=== PATIENT | female | born 1965 | race Caucasian/White ===

== ENCOUNTER → 2017-01-24 | Outpatient (CLI) | payer SELFPAY ==
--- NOTE | 2017-01-24 11:54 | XR ---
EXAMINATION TYPE: XR Hip Complete LT DATE OF EXAM: 01/24/2017 CLINICAL HISTORY: pain TECHNIQUE: AP and frogleg views of the left hip are obtained. COMPARISON: None. FINDINGS: There is no acute fracture/dislocation evident. The joint space appears mildly narrowed. The overlying soft tissue appears unremarkable. IMPRESSION: 1. There is no acute fracture or dislocation. ICD 10 NO FRACTURE, INITIAL EVALUATION
== END | disposition home or self-care (01) ==
LOC: RADXRMAIN 11:21
PROVIDERS: ATTEND Family Medicine
DX: M79.605 Pain in left leg (principal); M25.552 Pain in left hip
CPT/HCPCS: 73502

== ENCOUNTER → 2020-05-04 | Outpatient (CLI) | payer OTHER ==
[2020-05-04 11:00] LABS: Basophils % (A) 0 %; Eosinophils # (A) 0.3 k/uL (0-0.7); Eosinophils % (A) 5 %; HCT 40.5 % (34.0-46.0); HGB 12.9 gm/dL (11.4-16.0); Lymphocytes % (A) 29 %; MCH 27.2 pg (25.0-35.0); MCHC 31.8 g/dL (31.0-37.0); MCV 85.6 fL (80.0-100.0); Mean Platelet Volume 6.5; Monocytes # (A) 0.3 k/uL (0-1.0); Monocytes % (A) 5 %; Neutrophils % (A) 59 %; Platelet Count 384 k/uL (150-450); RBC 4.74 m/uL (3.80-5.40); RDW 12.4 % (11.5-15.5); WBC 6.8 k/uL (3.8-10.6)
[2020-05-04 17:01] LABS: African American GFR (CKD) 94.9 (60.0-200.0); Non-African American GFR(CKD) 81.8 (60.0-200.0); Potassium 4.2 mmol/L (3.5-5.5)
== END | disposition home or self-care (01) ==
LOC: LABWHC1 09:14
PROVIDERS: ATTEND Obstetrics & Gynecology
DX: Z01.818 Encounter for other preprocedural examination (principal); N81.4 Uterovaginal prolapse, unspecified
CPT/HCPCS: 36415; 80051; 82565; 82947; 84520; 85025; 87086; 93005

== ENCOUNTER → 2020-05-12 | Outpatient (CLI) | payer OTHER | END | disposition home or self-care (01) | LOC: LABPAT 13:42 | PROVIDERS: ATTEND Obstetrics & Gynecology | DX: Z01.818 Encounter for other preprocedural examination (principal); N81.4 Uterovaginal prolapse, unspecified; N81.11 Cystocele, midline | CPT/HCPCS: 36415; 86850; 86900; 86901 ==

== ENCOUNTER 2020-05-18 05:53 | Day surgery (SDC) | payer OTHER ==
[2020-05-14 14:14] VITALS: BMI 25.9
[~2020-05-18 05:53] MED LIST: DEXAMETHASONE SOD PHOSPHATE 10 MG/ML 1 ML VIAL IV ONE; LACTATED RINGERS 1,000 ML IV SCH; LIDOCAINE 1% (10MG/ML) FOR IV START INTRADERMA PRN; MIDAZOLAM 2 MG/2 ML VIAL IV PRN; ONDANSETRON 4 MG/2 ML VIAL IVP ONE
[2020-05-18] MEDS ORDERED: ePHEDrine SULFATE/0.9% NACL/PF 50 MG/5 ML SYRINGE IV ONE (07:21)
[2020-05-18] MEDS ORDERED: MIDAZOLAM 2 MG/2 ML VIAL ONE (07:21)
[2020-05-18] MEDS ORDERED: LIDOCAINE 1% INJ 10MG/ML (20 ML MDV) ONE (07:21)
[2020-05-18] MEDS ORDERED: PROPOFOL 10 MG/ML 20 ML VIAL IV ONE (07:21)
[2020-05-18] MEDS ORDERED: fentaNYL (PF) 50 MCG/ML 2 ML AMP ONE (07:21)
[2020-05-18] MEDS ORDERED: VASOPRESSIN 20 UNIT/ML 1 ML VIAL SQ ONE ×2 (07:47)
[2020-05-18] MEDS ORDERED: BACITRACIN ZINC 500 UNIT/GM OINT 28.4 GM TUBE TOPICAL ONE ×2 (07:51→08:35)
--- NOTE | 2020-05-18 08:09 | P.ANPRN ---
Procedure Note - Anesthesia - Epidural/Spinal Spinal Time Out Performed: Yes Date of Procedure: 05/18/20 Procedure Start Time: 06:54 Procedure Stop Time: 07:03 Location of Patient: PreOp Indication: Acute Post-Operative Pain, Analgesia, Requested by Surgeon Sedation Type: Sedate with meaningful contact maintained Preparation: Sterile Dressing Number of Attempts: 1 Position: Sitting Catheter: None Needle Guage: 25, Other (see comment) (3.5 inch long ) Blood Aspirated: No Pain Paresthesia on Injection Noted: No Events: Uneventful and Well Tolerated (Morphine PF 300 micrograms and fentanyl 25 micrograms)
[2020-05-18] MEDS ORDERED: METOCLOPRAMIDE 5 MG/ML 2 ML VIAL IVP PRN (08:57)
[2020-05-18] MEDS ORDERED: diphenhydrAMINE 50 MG/ML 1 ML VIAL IVP PRN (08:57)
[2020-05-18] MEDS ORDERED: ONDANSETRON 4 MG/2 ML VIAL IVP PRN (08:57)
[2020-05-18] MEDS ORDERED: ZOLPIDEM 5 MG TAB PO PRN (08:57)
--- NOTE | 2020-05-18 08:57 | P.OP ---
Date of Procedure: 05/18/20 Preoperative Diagnosis: Symptomatic uterine prolapse and cystocele Postoperative Diagnosis: Normal-appearing ovaries bilaterally Procedure(s) Performed: Vaginal hysterectomy, anterior repair Anesthesia: ARCADIOA Surgeon: Dara Head Drag Seiner #1: Aidee Villafana Estimated Blood Loss (ml): 150 IV fluids (ml): 600 Urine output (ml): 150 Pathology: other (Cervix and uterus) Condition: stable Disposition: PACU Operative Findings: Normal-appearing ovaries bilaterally. Description of Procedure: Patient is brought to the operating suite where a general anesthetic is administered without difficulty. Spinal with Duramorph has been placed. Antibiotics given. The appropriate timeout is performed to assure proper patient and procedural identification. Patient is placed in the dorsal lithotomy position, cervix and vagina, perineal bodies are all prepped and draped in usual sterile fashion. The bladder is drained for approximately 150 mL of clear yellow urine. Weighted speculum was placed into the vagina. Anterior lip of the cervix is grasped with a double-tooth tenaculum. Cervix is injected circumferentially with a dilute Pitressin solution. A benton blade scalpel is used to incise the peritoneum circumferentially with a V positioning at 6:00. Sponge rolled finger is used to push the mucosa from the underlying fascial plane. Peritoneum is entered at 6:00 and suture tied with 2-0 Vicryl. Weighted speculum is then placed into the peritoneal cavity. At all times care is taken to keep the mucosa swept well from the operative field to avoid bladder and/or ureteral injury. The right uterosacral ligament is identified, clamped cut and Shayna tied with 0 Vicryl and held. The same procedure is carried out contralaterally. Uterine vasculature is identified, cl amped cut and suture ligated. 2 additional pedicles are taken superior to the vessels. The anterior peritoneum is entered at 12:00. Jeanmarie clamps are used across the final pedicles and the uterus is removed. The pedicles are tied with 0 Vicryl suture, flashed, and retied for excellent hemostasis. A sponge stick is then used and both ovaries are identified, high in the peritoneal cavity, within normal limits to inspection and left in situ per patient's wishes. Hemostasis is excellent. The shallow billed speculum is then placed into the vagina. The 2-0 Vicryl suture at 6:00 is brought around in a pursestring fashion to close the peritoneal cavity. The uterosacral cardinal ligament complex these are attached to the opposite complex and vaginal mucosa to begin vaginal cuff closure. 2 additional [id number] sutures are used posterior to this to close the vaginal cough. The anterior mucosa is held with Allis clamps and the anterior repair is started. The mucosa is injected in the midline with the same dilute Pitressin solution. Metzenbaum scissors are used to open the mucosa to the apex of the defect, approximate 1.5 cm inferior to the urethra. Sponge rolled finger is used to sweep the mucosa from the underlying fascial plane. Gamez catheter is then placed in the urine is noted to be clear. 2-0 Vicryl is used in an interrupted fashion to bring the fascial edges together thereby completely reducing the cystocele. The mucosa is trimmed with Metzenbaum scissors. 2-0 Vicryl is used in a running stitch to close the anterior mucosa. Gamez is again noted to be draining clear urine. Vagina is packed with one-inch iodophor gauze with basic tracing. All sponge needle and enhancement counts are correct at the end of the procedure. Patient is brought back to the recovery room in very good condition with stable vital signs including blood pressure 122/77, pulse 60.. Total estimated blood loss 1 50 mL, urine 1 50 mL, fluid replacement 600 mL's.
[2020-05-18] MEDS: HYDROmorphone 0.5 MG/0.5 ML SYRINGE IVP PRN ×2 (09:12→09:30)
[2020-05-18] MEDS ORDERED: LACTATED RINGERS 1,000 ML IV ONE (09:32)
[2020-05-18] MEDS: LACTATED RINGERS 1,000 ML IV SCH ×2 (10:10→17:22)
[2020-05-18] MEDS: IBUPROFEN 600 MG TAB PO PRN (17:27)
[2020-05-19] MEDS: LACTATED RINGERS 1,000 ML IV SCH (01:13)
[2020-05-19] MEDS: IBUPROFEN 600 MG TAB PO PRN ×2 (04:50→10:05)
[2020-05-19] MEDS ORDERED: LEVOTHYROXINE 25 MCG TAB PO SCH (06:30)
--- NOTE | 2020-05-19 06:32 | P.PN ---
Progress Note - Text Progress Note Date: 05/19/20 Thais is postop day 1 from a vaginal hysterectomy. She had a spinal Duramorph for postoperative pain relief. Her pain has been under control. She has not required any opioid medication besides ibuprofen 800 mg. She is having minimal pruritus. Denies any significant bowel or bladder incontinence. Denies any overt lower extremity or upper extremity weakness. She is awake and not having any significant sedation.
--- NOTE | 2020-05-19 07:52 | P.DS ---
Providers Date of admission: 05/18/20 Expected date of discharge: 05/19/20 Attending physician: Dara Head Primary care physician: Teo Zhu [facility] Course: This is a 55-year-old white female who presented with a history of uterine prola pse and symptomatic cystocele. Thorough consultation was undertaken, and she elected to proceed with vaginal surgery, declining the option of pessary use. Please see dictated history and physical for details. She was admitted yesterday and underwent a vaginal hysterectomy and anterior colporrhaphy under my care. Ovaries appeared normal bilaterally and were left in situ per the patient's wishes. She did well intraoperatively, please see dictated operative note for details. This morning she is doing well. The Gamez catheter and vaginal packing a been removed. Diet has been advanced. Activity is advanced. She remains afebrile, vital signs are stable. Abdomen is soft and nontender, no vaginal bleeding, no CVA tenderness. Patient is judged to be in very good condition for discharge home pending successful void. She will follow-up with me in the office in 2 weeks. I reminded her no intercourse, tampons or douching. She will use [id number] Advil or Aleve, or Motrin as needed for pain. She will call with any fevers shakes or chills, foul smelling or bloody vaginal discharge, with the passage of large blood clots, with any pain not alleviated by [id number] products, or indeed with any concerns Assessment: Doing well postoperative day #1 Patient Condition at Discharge: Good Plan - Discharge Summary Discharge Rx Participant: No New Discharge Prescriptions: No Action Levothyroxine Sodium [Synthroid] 25 mcg PO DAILY Cholecalciferol [Vitamin D3 (25 Mcg = 1000 Iu)] 1,000 unit PO DAILY Discharge Medication List Levothyroxine Sodium [Synthroid] 25 mcg PO DAILY 08/11/15 [History] Cholecalciferol [Vitamin D3 (25 Mcg = 1000 Iu)] 1,000 unit PO DAILY 05/14/20 [History] Follow up Appointment(s)/Referral(s): Dara Head MD [STAFF PHYSICIAN] - 2 Weeks Discharge Disposition: HOME SELF-CARE
[2020-05-19] MEDS: SIMETHICONE 80 MG CHEWABLE PO PRN ×2 (07:58→10:40)
[2020-05-19 08:49] VITALS: BP 101/66; PULSE 56; RESP 16; TEMP 98.4
== END 2020-05-19 11:30 | disposition home or self-care (01) ==
LOC: OR 05:53 → 6PED 08:43 → OR 05-19 11:30
PROVIDERS: ATTEND Obstetrics & Gynecology
DX: N81.4 Uterovaginal prolapse, unspecified (principal); N84.0 Polyp of corpus uteri; N80.0 Endometriosis of uterus; I83.90 Asymptomatic varicose veins of unspecified lower extremity; E89.0 Postprocedural hypothyroidism; Z97.2 Presence of dental prosthetic device (complete) (partial); Z82.49 Family history of ischemic heart disease and other diseases of the circulatory system; Z80.9 Family history of malignant neoplasm, unspecified; Z79.890 Hormone replacement therapy
CPT/HCPCS: 88307; 58260; 57240; J2250; J1100; J0690; J2405; J2001; J3010; J2704; J1170; 36415; 86850; 86900; 86901

== ENCOUNTER → 2020-05-25 | Outpatient (CLI) | payer SELFPAY ==
--- NOTE | 2020-05-26 09:13 | MM ---
Reason for exam: screening (asymptomatic). Last mammogram was performed 7 years and 5 months ago. History: Patient is postmenopausal. Cancelled Right US Needle Biopsy of the right breast, April 30, 2007. Cyst aspiration of the right breast, 2003. Physical Findings: A clinical breast exam by your physician is recommended on an annual basis and results should be correlated with mammographic findings. MG Screening Mammo w CAD Bilateral CC, MLO, and XCCL view(s) were taken. Prior study comparison: December 27, 2012, CAD bilateral diagnostic mammogram. January 05, 2012, CAD bilateral diagnostic mammogram. The breast tissue is heterogeneously dense. This may lower the sensitivity of mammography. Distortion lower inner left breast. ASSESSMENT: Incomplete: need additional imaging evaluation, BI-RAD 0 RECOMMENDATION: Special view mammogram of the left breast. If lesion persists on supplemental views, image directed ultrasound is recommended. [facility] will attempt to contact patient to return for supplemental views and ultrasound if indicated.
== END | disposition home or self-care (01) ==
LOC: RADMAMWWP 11:20
PROVIDERS: ATTEND Family Medicine
DX: Z12.31 Encounter for screening mammogram for malignant neoplasm of breast (principal)
CPT/HCPCS: 77067

== ENCOUNTER → 2020-06-10 | Outpatient (CLI) | payer OTHER ==
--- NOTE | 2020-06-15 10:30 | MM ---
Reason for exam: additional evaluation requested from abnormal screening. Last mammogram was performed 1 month ago. History: Patient is postmenopausal. Cancelled Right US Needle Biopsy of the right breast, April 30, 2007. Cyst aspiration of the right breast, 2003. Physical Findings: Nurse did not find any significant physical abnormalities on exam. MG Work Up Mamm w CAD LT Spot compression CC, spot compression MLO, and LM view(s) were taken of the left breast. Prior study comparison: May 25, 2020, bilateral MG screening mammo w CAD. December 27, 2012, CAD bilateral diagnostic mammogram. The breast tissue is heterogeneously dense. This may lower the sensitivity of mammography. No distinct lesion persists on additional views. These results were verbally communicated with the patient and result sheet given to the patient on 06/10/20. ASSESSMENT: Benign, BI-RAD 2 RECOMMENDATION: Return to routine screening mammogram schedule for both breasts.
== END | disposition home or self-care (01) ==
LOC: RADMAMWWP 13:11
PROVIDERS: ATTEND Family Medicine
DX: R92.8 Other abnormal and inconclusive findings on diagnostic imaging of breast (principal)
CPT/HCPCS: 77065

== ENCOUNTER 2020-09-26 11:38 | Emergency (ER) | payer OTHER ==
[2020-09-26 11:44] VITALS: RESP 18
--- NOTE | 2020-09-26 11:54 | ED ---
Fall HPI - General Chief Complaint: Fall Stated Complaint: Fall Time Seen by Provider: 09/26/20 11:47 Source: patient, RN notes reviewed Mode of arrival: ambulatory Limitations: no limitations - History of Present Illness Initial Comments: 55-year-old female presents emergency Department with chief complaint of slip and fall. Patient states she slipped on some ice falling striking the right side of her chest. Patient went to rib pain no head injury no loss conscious denies any neck, back, hip or lower extremity or upper chest pain. Patient states it hurts to take a deep breath. She states she takes ibuprofen 20 minutes ago. Patient has no complaints of abdominal pain - Related Data Home Medications Medication Instructions Recorded Confirmed Levothyroxine Sodium [Synthroid] 25 mcg PO DAILY 08/11/15 09/26/20 Cholecalciferol [Vitamin D3 (25 1,000 unit PO DAILY 05/14/20 09/26/20 Mcg = 1000 Iu)] Ibuprofen [Motrin] 600 mg PO Q12HR PRN 09/26/20 09/26/20 Allergies Allergy/AdvReac Type Severity Reaction Status Date / Time unknown antibiotic Allergy Unknown Rash/Hives Uncoded 09/26/20 11:44 Review of Systems ROS Statement: Those systems with pertinent positive or pertinent negative responses have been documented in the HPI. ROS Other: All systems not noted in ROS Statement are negative. Past Medical History Past Medical History: Thyroid Disorder History of Any Multi-Drug Resistant Organisms: None Reported Additional Past Surgical History / Comment(s): Partial thyroidectomy on the left side. Past Psychological History: No Psychological Hx Reported Past Alcohol Use History: Occasional Past Drug Use History: Marijuana General Exam Limitations: no limitations General appearance: alert, in no apparent distress Head exam: Present: atraumatic, normocephalic, normal inspection Eye exam: Present: normal appearance, PERRL, EOMI. Absent: scleral icterus, conjunctival injection, periorbital swelling ENT exam: Present: normal exam, normal oropharynx, mucous membranes moist Neck exam: Present: normal inspection, full ROM. Absent: tenderness, meningismus, lymphadenopathy Respiratory exam: Present: normal lung sounds bilaterally, chest wall tenderness (Moderate right-sided rib tenderness). Absent: respiratory distress, wheezes, rales, rhonchi, stridor Cardiovascular Exam: Present: regular rate, normal rhythm, normal heart sounds. Absent: systolic murmur, diastolic murmur, rubs, gallop, clicks GI/Abdominal exam: Present: soft, normal bowel sounds. Absent: distended, tenderness, guarding, rebound, rigid Extremities exam: Present: normal inspection, full ROM, normal capillary refill. Absent: tenderness, pedal edema, joint swelling, calf tenderness Back exam: Present: full ROM. Absent: tenderness, paraspinal tenderness, vertebral tenderness Neurological exam: Present: alert, oriented X3, CN II-XII intact, reflexes normal. Absent: motor sensory deficit Course Vital Signs 09/26/20 11:39 Temperature 98.4 F Pulse Rate 68 Respiratory 18 Rate Blood Pressure 171/101 O2 Sat by Pulse 97 Oximetry - Reevaluation(s) Reevaluation #1: 09/26/20 11:54 Patient was offered pain medication, patient declines. Medical Decision Making - Medical Decision Making 55-year-old presented for slip and fall. X-ray shows evidence of rib fracture. Patient has no evidence of pneumothorax. Patient we discharged in stable condition. Disposition Clinical Impression: Fall, Right rib fracture Disposition: HOME SELF-CARE Condition: Stable Instructions (If sedation given, give patient instructions): Rib Fracture (ED) Additional Instructions: Please return to the Emergency Department if symptoms worsen or any other concerns. Is patient prescribed a controlled substance at d/c from ED?: No Referrals: Teo Zhu MD [Primary Care Provider] - 1-2 days Time of Disposition: 12:27
--- NOTE | 2020-09-26 12:23 | XR ---
EXAMINATION TYPE: XR ribs RT w pa chest xray DATE OF EXAM: 09/26/2020 COMPARISON: NONE HISTORY: Pain TECHNIQUE: Single view of the chest four views of the ribs are submitted. FINDINGS: The lungs are clear. No Evidence for pneumothorax. No evidence for focal contusion. Medi astinal structures are midline. Evaluation of the ribs fails to demonstrate evidence for displaced r ib fracture or secondary sign of rib fracture. IMPRESSION: Negative study
[2020-09-26] MEDS ORDERED: ACET/COD 300 MG/30 MG STARTER PACK 6 TAB BTL PO STA (12:30)
[2020-09-26 12:44] VITALS: BP 122/88; PULSE 64; TEMP 98.7
== END 2020-09-26 12:43 | disposition home or self-care (01) ==
LOC: EC 11:38
DX: S22.31XA Fracture of one rib, right side, initial encounter for closed fracture (principal); E07.9 Disorder of thyroid, unspecified; Z79.890 Hormone replacement therapy; W00.0XXA Fall on same level due to ice and snow, initial encounter; Y93.01 Activity, walking, marching and hiking
CPT/HCPCS: 99283

== ENCOUNTER 2020-10-15 09:44 | Emergency (ER) | payer OTHER ==
[2020-10-15] MEDS ORDERED: SODIUM CHLORIDE 0.9% 500 ML 500 ML IV STA (10:14)
[2020-10-15] MEDS ORDERED: MAG HYDROX/AL HYDROX/SIMETH 30 ML, HYOSCYAMINE ELIXIR 10 ML, LIDOCAINE VISCOUS 2% 10 ML PO STA ×3 (10:15)
[2020-10-15] MEDS ORDERED: FAMOTIDINE 20 MG/2 ML VIAL IV STA (10:15)
--- NOTE | 2020-10-15 10:24 | ED ---
General Adult HPI - General Chief complaint: Abdominal Pain Stated complaint: Fall, Abd pain Time Seen by Provider: 10/15/20 09:52 Source: patient, RN notes reviewed Mode of arrival: ambulatory Limitations: no limitations - History of Present Illness Initial comments: 55-year-old female presents to the emergency room for a chief complaint of abdominal pain. Patient did fall 2 weeks ago and broke two right ribs. About a week later pain started in her epigastric region and started to cause bloating and discomfort throughout her entire abdomen. It does not radiate to the chest back or right upper quadrant. There is no nausea vomiting diarrhea. No postprandial pain. Patient last had a normal bowel movement yesterday. Patient is passing gas. Patient has no other complaints at this time including shortness of breath, chest pain nausea vomiting, headache, or visual changes. - Related Data Home Medications Medication Instructions Recorded Confirmed Levothyroxine Sodium [Synthroid] 25 mcg PO DAILY 08/11/15 10/15/20 Ibuprofen [Motrin] 600 mg PO Q12HR PRN 09/26/20 10/15/20 Acetaminophen Tab [Tylenol Tab] 500 mg PO Q6HR PRN 10/15/20 10/15/20 Allergies Allergy/AdvReac Type Severity Reaction Status Date / Time Iodinated Contrast Media AdvReac Intermediate Swelling Verified 10/15/20 12:04 unknown antibiotic AdvReac Unknown Rash/Hives Uncoded 10/15/20 12:04 Review of Systems ROS Statement: Those systems with pertinent positive or pertinent negative responses have been documented in the HPI. ROS Other: All systems not noted in ROS Statement are negative. Past Medical History Past Medical History: Thyroid Disorder History of Any Multi-Drug Resistant Organisms: None Reported Past Surgical History: Bladder Surgery, Hysterectomy Additional Past Surgical History / Comment(s): Partial thyroidectomy on the left side. Past Psychological History: No Psychological Hx Reported Smoking Status: Never smoker Past Alcohol Use History: Occasional Past Drug Use History: Marijuana General Exam Limitations: no limitations General appearance: alert, in no apparent distress Head exam: Present: atraumatic, normocephalic, normal inspection Eye exam: Present: normal appearance, PERRL, EOMI. Absent: scleral icterus, conjunctival injection ENT exam: Present: normal exam, mucous membranes moist Neck exam: Present: normal inspection, full ROM. Absent: tenderness Respiratory exam: Present: normal lung sounds bilaterally. Absent: respiratory distress, wheezes Cardiovascular Exam: Present: regular rate, normal rhythm, normal heart sounds GI/Abdominal exam: Present: soft, tenderness (Epigastric tenderness noted. No right upper quadrant or left upper quadrant tenderness. No lower abdominal tenderness.), normal bowel sounds. Absent: distended, guarding, rebound, rigid Expanded GI/Abdominal exam: Absent: heel tap sign, Ji's sign, Rovsing's sign, tenderness at McBurney's Point Course Vital Signs 10/15/20 10/15/20 10/15/20 09:47 10:22 11:16 Temperature 97.9 F Pulse Rate 84 78 86 Respiratory 20 18 18 Rate Blood Pressure 130/87 136/81 158/101 O2 Sat by Pulse 99 97 100 Oximetry 10/15/20 10/15/20 11:30 12:00 Temperature Pulse Rate 76 74 Respiratory 20 18 Rate Blood Pressure 145/95 146/94 O2 Sat by Pulse 100 99 Oximetry - Reevaluation(s) Reevaluation #1: 10/15/20 11:30 Patient did have ALLERGIC reaction in CAT scan from contrast. Dix like her throat was swelling. Patient had RAD received Pepcid, given Benadryl and Solu- Medrol. Did have improvement in symptoms. EKG Findings - EKG Comments: EKG Findings:: Normal sinus rhythm, ventricular rate 67, CT interval 138, QTc 412 Medical Decision Making - Medical Decision Making Vitals are stable. CBC CMP unremarkable. Amylase and lipase are normal. Troponin negative. Urinalysis negative. Chest x-ray shows no acute normality. CT abdomen and pelvis did show enteritis as well as an uncomplicated cholelithiasis. I do not suspect cholecystitis given patient does not have fever, leukocytosis, transaminitis, or fluid around the gallbladder on CAT scan. At this time I recommend follow-up with general surgery. Patient was referred to Dr. thomas as he is on-call. She is much better after pain medication given. She will return here for any worsening symptoms. I discussed this case with attending Dr. Whiting who agrees with this assessment and treatment plan. - Lab Data Result diagrams: 10/15/20 10:27 10/15/20 10:27 Lab Results 10/15/20 10/15/20 10/15/20 Range/Units 10:27 10: 10:27 WBC 6.0 (3.8-10.6) k/uL RBC 4.50 (3.80-5.40) m/uL Hgb 12.3 (11.4-16.0) gm/dL Hct 36.8 (34.0-46.0) % MCV 81.8 (80.0-100.0) fL MCH 27.3 (25.0-35.0) pg MCHC 33.4 (31.0-37.0) g/dL RDW 12.8 (11.5-15.5) % Plt Count 407 (150-450) k/uL MPV 6.5 Neutrophils % 55 % Lymphocytes % 27 % Monocytes % 5 % Eosinophils % 11 % Basophils % 1 % Neutrophils # 3.3 (1.3-7.7) k/uL Lymphocytes # 1.6 (1.0-4.8) k/uL Monocytes # 0.3 (0-1.0) k/uL Eosinophils # 0.6 (0-0.7) k/uL Basophils # 0.0 (0-0.2) k/uL Sodium 137 (137-145) mmol/L Potassium 4.3 (3.5-5.1) mmol/L Chloride 104 (98-107) mmol/L Carbon Dioxide 26 (22-30) mmol/L Anion Gap 7 mmol/L BUN 12 (7-17) mg/dL Creatinine 0.66 (0.52-1.04) mg/dL Est GFR (CKD-EPI)AfAm >90 (>60 ml/min/1.73 sqM) Est GFR (CKD-EPI)NonAf >90 (>60 ml/min/1.73 sqM) Glucose 111 H (74-99) mg/dL Plasma Lactic Acid Chris (0.7-2.0) mmol/L Calcium 8.9 (8.4-10.2) mg/dL Total Bilirubin 0.4 (0.2-1.3) mg/dL AST 21 (14-36) U/L ALT 17 (4-34) U/L Alkaline Phosphatase 91 (38-126) U/L Troponin I (0.000-0.034) ng/mL Total Protein 6.9 (6.3-8.2) g/dL Albumin 4.0 (3.5-5.0) g/dL Amylase 36 (30-110) U/L Lipase 64 (23-300) U/L Urine Color Light Yellow Urine Appearance Clear (Clear) Urine pH 5.5 (5.0-8.0) Ur Specific Monroe 1.015 (1.001-1.035) Urine Protein Negative (Negative) Urine Glucose (UA) Negative (Negative) Urine Ketones Negative (Negative) Urine Blood Negative (Negative) Urine Nitrite Negative (Negative) Urine Bilirubin Negative (Negative) Urine Urobilinogen <2.0 (<2.0) mg/dL Ur Leukocyte Esterase Negative (Negative) 10/15/20 10/15/20 Range/Units 10:27 10:27 WBC (3.8-10.6) k/uL RBC (3.80-5.40) m/uL Hgb (11.4-16.0) gm/dL Hct (34.0-46.0) % MCV (80.0-100.0) fL MCH (25.0-35.0) pg MCHC (31.0-37.0) g/dL RDW (11.5-15.5) % Plt Count (150-450) k/uL MPV Neutrophils % % Lymphocytes % % Monocytes % % Eosinophils % % Basophils % % Neutrophils # (1.3-7.7) k/uL Lymphocytes # (1.0-4.8) k/uL Monocytes # (0-1.0) k/uL Eosinophils # (0-0.7) k/uL Basophils # (0-0.2) k/uL Sodium (137-145) mmol/L Potassium (3.5-5.1) mmol/L Chloride (98-107) mmol/L Carbon Dioxide (22-30) mmol/L Anion Gap mmol/L BUN (7-17) mg/dL Creatinine (0.52-1.04) mg/dL Est GFR (CKD-EPI)AfAm (>60 ml/min/1.73 sqM) Est GFR (CKD-EPI)NonAf (>60 ml/min/1.73 sqM) Glucose (74-99) mg/dL Plasma Lactic Acid Chris 1.3 (0.7-2.0) mmol/L Calcium (8.4-10.2) mg/dL Total Bilirubin (0.2-1.3) mg/dL AST (14-36) U/L ALT (4-34) U/L Alkaline Phosphatase (38-126) U/L Troponin I <0.012 (0.000-0.034) ng/mL Total Protein (6.3-8.2) g/dL Albumin (3.5-5.0) g/dL Amylase (30-110) U/L Lipase (23-300) U/L Urine Color Urine Appearance (Clear) Urine pH (5.0-8.0) Ur Specific Monroe (1.001-1.035) Urine Protein (Negative) Urine Glucose (UA) (Negative) Urine Ketones (Negative) Urine Blood (Negative) Urine Nitrite (Negative) Urine Bilirubin (Negative) Urine Urobilinogen (<2.0) mg/dL Ur Leukocyte Esterase (Negative) Disposition Clinical Impression: Abdominal pain, Cholelithiases Disposition: HOME SELF-CARE Condition: Good Instructions (If sedation given, give patient instructions): Gallstones (ED), Low Fat Diet (ED) Additional Instructions: Please try a low fat diet. Continue to take her Pepcid and follow up with gene ral surgery by calling today for the earliest appointment. Return to the emergency room for worsening symptoms such as worsening abdominal pain, fevers, unable to keep down fluids, or any other worsening symptoms. Is patient prescribed a controlled substance at d/c from ED?: No Referrals: Teo Zhu MD [Primary Care Provider] - 1-2 days Time of Disposition: 12:43
[2020-10-15 10:44] LABS: Appearance,Urine Clear (Clear); Basophils % (A) 1 %; Bilirubin,Urine Negative (Negative); Blood,Urine Negative (Negative); Color,Urine Light Yellow; Eosinophils # (A) 0.6 k/uL (0-0.7); Eosinophils % (A) 11 %; Glucose,Urine (UA) Negative (Negative); HCT 36.8 % (34.0-46.0); HGB 12.3 gm/dL (11.4-16.0); Ketones,Urine Negative (Negative); Leukocyte Esterase,Urine Negative (Negative); Lymphocytes # (A) 1.6 k/uL (1.0-4.8); Lymphocytes % (A) 27 %; MCH 27.3 pg (25.0-35.0); MCHC 33.4 g/dL (31.0-37.0); MCV 81.8 fL (80.0-100.0); Mean Platelet Volume 6.5; Monocytes # (A) 0.3 k/uL (0-1.0); Monocytes % (A) 5 %; Neutrophils # (A) 3.3 k/uL (1.3-7.7); Neutrophils % (A) 55 %; Nitrite,Urine Negative (Negative); PH, Urine 5.5 (5.0-8.0); Platelet Count 407 k/uL (150-450); Protein,Urine Negative (Negative); RDW 12.8 % (11.5-15.5); Specific Gravity,Urine 1.015 (1.001-1.035); Urobilinogen,Urine <2.0 mg/dL (<2.0)
[2020-10-15 10:53] LABS: Amylase 36 U/L (30-110); Chloride 104 mmol/L (98-107); Glucose 111 mg/dL (74-99); Total Protein 6.9 g/dL (6.3-8.2)
[2020-10-15 10:54] LABS: ALT 17 U/L (4-34); AST 21 U/L (14-36); African American GFR (CKD) >90 (>60 ml/min/1.73 sqM); Alkaline Phosphatase 91 U/L (38-126); Anion Gap 7 mmol/L; Blood Urea Nitrogen 12 mg/dL (7-17); Calcium 8.9 mg/dL (8.4-10.2); Carbon Dioxide 26 mmol/L (22-30); Lipase 64 U/L (23-300); Non-African American GFR(CKD) >90 (>60 ml/min/1.73 sqM); Potassium 4.3 mmol/L (3.5-5.1); Sodium 137 mmol/L (137-145); Total Bilirubin 0.4 mg/dL (0.2-1.3)
--- NOTE | 2020-10-15 10:55 | XR ---
EXAMINATION TYPE: XR chest 2V DATE OF EXAM: 10/15/2020 COMPARISON: 09/26/2020 INDICATION: Abdomen pain bloating fall 3 weeks prior TECHNIQUE: Frontal and lateral views of the chest are obtained. FINDINGS: The heart size is normal. The pulmonary vasculature is normal. The lungs are clear. IMPRESSION: 1. No acute pulmonary process.
[2020-10-15] MEDS ORDERED: diphenhydrAMINE 50 MG/ML 1 ML VIAL IVP STA (11:13)
[2020-10-15] MEDS ORDERED: methylPREDNISolone SOD SUCCI 125 MG/2 ML VIAL IV STA (11:13)
--- NOTE | 2020-10-15 11:40 | CT ---
EXAMINATION TYPE: CT abdomen pelvis w con DATE OF EXAM: 10/15/2020 COMPARISON: None HISTORY: recent fall, epigastric pain, fullness CT DLP: 597.9 mGycm CONTRAST: CT scan of the abdomen and pelvis is performed without Oral Contrast and with IV Contrast, patient in jected with 100 mL of Isovue 300. Patient experienced a contrast reaction subsequently delayed images were not obtained. FINDINGS: LUNG BASES-: No visible nodule. No infiltrate. LIVER/GB: Solitary gallstone identified. Cyst near the dome of the liver measuring 1.6 cm. Biliary tree is of normal caliber. PANCREAS: No inflammation. No distinct mass. SPLEEN: No splenic enlargement. No lesion seen. ADRENALS: No nodule. No thickening. KIDNEYS/BLADDER: No hydronephrosis. No nephrolithiasis. No distinct renal mass. Urinary bladder g rossly unremarkable. BOWEL: Normal appendix. Normal bowel caliber. Wall thickening involving jejunal small bowel loops co mpatible with enteritis. Involving several GENITAL ORGANS: Hysterectomy changes identified. LYMPH NODES: No greater than 1cm abdominal or pelvic lymph nodes are appreciated. AORTA: No significant abnormality. OSSEOUS STRUCTURES: No significant abnormality is seen. OTHER: No significant additional abnormality is seen. IMPRESSION: 1. Nonspecific small bowel enteritis. 2. Uncomplicated cholelithiasis.
[2020-10-15] MEDS ORDERED: KETOROLAC 15 MG/ML 1 ML VIAL IVP STA (11:58)
[2020-10-15 12:10] VITALS: PULSE 74; RESP 18
[2020-10-15 13:08] VITALS: BP 117/64; TEMP 98.2
== END 2020-10-15 13:00 | disposition home or self-care (01) ==
LOC: EC 09:44
DX: K80.20 Calculus of gallbladder without cholecystitis without obstruction (principal); K52.9 Noninfective gastroenteritis and colitis, unspecified; E07.9 Disorder of thyroid, unspecified; Z79.890 Hormone replacement therapy; Z88.1 Allergy status to other antibiotic agents; Z91.041 Radiographic dye allergy status; Z90.710 Acquired absence of both cervix and uterus
CPT/HCPCS: 36415; 93005; 80053; 82150; 83605; 83690; 84484; 85025; 81003; 71046; 74177; 99284; 96374; 96375 ×3; 96361; J1200; J2930; J1885; Q9967

== ENCOUNTER → 2020-12-30 | Outpatient (CLI) | payer OTHER ==
--- NOTE | 2020-12-30 10:07 | US ---
EXAMINATION TYPE: US thyroid st tissue head/neck DATE OF EXAM: 12/30/2020 COMPARISON: US CLINICAL HISTORY: E03.9 HYPOTHYROIDISM. Left thyroidectomy 2013; followup right thyroid nodules GLAND SIZE: Right Lobe: 4.5 x 1.6 x 1.6 cm Overall Parenchyma: homogenous Left Lobe: surgically removed Isthmus Thickness: 0.1 cm NODULES RIGHT: # of nodules measured on right: 2 largest of multiple 1. 0.3 X 0.3 x 0.3 cm, upper pole, spongiform, hypoechoic nodule, which is wide as is tall, with sm ooth margins, without echogenic foci. Prior size: 0.6 x 0.5 x 0.3 cm 2. 0.7 X 0.4 x 0.4 cm, mid pole, mixed cystic and solid, hypoechoic nodule, which is wide as is catalino l, with ill-defined margins, without echogenic foci. Prior size: 0.8 x 0.7 x 0.5 cm Left: no thyroid tissue is seen post thyroidectomy ISTHMUS: # of nodules measured in the isthmus: 0 Bilateral neck scanned: superior to right thyroid lymph node is seen = 1.1 x 1.0 x 0.6cm and sperior to left thyroid lymph node is seen = 1.2 x 0.7 x 0.3cm. IMPRESSION: Changes of left-sided thyroidectomy. 2. Lymph nodes as discussed above. 3. Nonspecific nodularity unchanged from prior study.
== END | disposition home or self-care (01) ==
LOC: RADUSWWP 09:01
PROVIDERS: ATTEND Internal Medicine
DX: E03.9 Hypothyroidism, unspecified (principal); E04.2 Nontoxic multinodular goiter
CPT/HCPCS: 76536

== ENCOUNTER → 2021-01-10 | Outpatient (CLI) | payer OTHER ==
--- NOTE | 2021-01-10 12:00 | FL ---
EXAMINATION TYPE: FL barium swallow w video DATE OF EXAM: 01/10/2021 MODIFIED SWALLOW / DEGLUTITION STUDY CLINICAL HISTORY: Dysphagia. Choking sensation. TECHNIQUE: Deglutition study is performed utilizing thin liquid barium, honey and nectar thick liqui d barium, barium thick applesauce, and barium coated cracker. 1.17 minutes of fluoro time and 0 imag es saved to PACS. COMPARISON: None. FINDINGS: The oral and pharyngeal phases show satisfactory initiation and propagation with all modali ties tested. Satisfactory mastication is seen with solid modalities tested. There is no evidence of penetration or aspiration with any modality tested. Mild pharyngeal residue was appreciated. IMPRESSION: No penetration or aspiration observed. Please refer to speech therapist notes for furthe r details if necessary.
== END ==
LOC: RADFLMAIN 10:53
PROVIDERS: ATTEND Internal Medicine
DX: R09.89 Other specified symptoms and signs involving the circulatory and respiratory systems (principal)
CPT/HCPCS: 74230

== ENCOUNTER 2021-06-22 09:55 | Day surgery (SDC) | payer OTHER ==
[2021-06-20 14:06] VITALS: BMI 25.6
[~2021-06-22 09:55] MED LIST changes: -DEXAMETHASONE SOD PHOSPHATE 10 MG/ML 1 ML VIAL IV ONE; -MIDAZOLAM 2 MG/2 ML VIAL IV PRN; -ONDANSETRON 4 MG/2 ML VIAL IVP ONE
[2021-06-22 10:29] VITALS: TEMP 96.9
[2021-06-22] MEDS ORDERED: PROPOFOL 10 MG/ML 20 ML VIAL IV ONE (10:52)
[2021-06-22] MEDS ORDERED: LIDOCAINE 1% INJ 10MG/ML (20 ML MDV) ONE (10:52)
--- NOTE | 2021-06-22 11:07 | P.PCN ---
Date of Procedure: 06/22/21 Procedure(s) Performed: BRIEF HISTORY: Patient is a 56-year-old, pleasant, white female scheduled for an upper endoscopy as a part of evaluation of epigastric pain and postprandial diarrhea for the last several months duration. She does complain of some nausea but no emesis. Has occasional heartburn.. PROCEDURE PERFORMED: Esophagogastroduodenoscopy with biopsy. PREOPERATIVE DIAGNOSIS: Chronic epigastric pain, heartburn and postprandial diarrhea of several months duration. IV sedation per anesthesia. PROCEDURE: After informed consent was obtained, the patient was brought into the endoscopy unit. IV sedation was administered by Anesthesia under continuous monitoring. Initially the Olympus GIF-140 video endoscope was inserted into the mouth. Esophagus intubated without any difficulty. It was gradually advanced into the stomach and duodenum and carefully examined. The bulb and the second p art of the duodenum appeared normal. biopsies were done from the duodenum to rule out celiac disease The scope at this time was withdrawn to the stomach, adequately insufflated with air, and upon careful examination, mucosa of the antrum, had mild gastritis and biopsies were done from this area. body, cardia and the fundus appeared normal. The scope was then withdrawn into the esophagus. The GE junction was located at 39 cm from the incisors. The esophagus appeared normal. There were no erosions or ulcerations seen and the patient tolerated the procedure well. IMPRESSION: 1. Mild antral gastritis. 2. No evidence of esophagitis or peptic ulcer disease. RECOMMENDATIONS: The findings of this examination were discussed with the patient as well as a family. She was advised to follow with the biopsy results. In the meantime she will be given a prescription for Prilosec 20 mg daily to be taken half hour before breakfast and follow antrum reflux measures. She'll be seen in office in 3-4 weeks..
[2021-06-22 11:55] VITALS: BP 127/78; PULSE 78; RESP 18
== END 2021-06-22 11:55 | disposition home or self-care (01) ==
LOC: ORWHC2ENDO 09:55
PROVIDERS: ATTEND Internal Medicine Gastroenterology
DX: K29.70 Gastritis, unspecified, without bleeding (principal); R10.13 Epigastric pain; G89.29 Other chronic pain; K29.80 Duodenitis without bleeding; K52.9 Noninfective gastroenteritis and colitis, unspecified
CPT/HCPCS: 43239; 88305; 88342; J2001; J2704

== ENCOUNTER 2021-11-08 07:35 | Day surgery (SDC) | payer OTHER ==
[2021-11-04 14:04] VITALS: BMI 24.7
[2021-11-08 08:23] VITALS: RESP 16; TEMP 98.2
[2021-11-08] MEDS ORDERED: PROPOFOL 10 MG/ML 20 ML VIAL IV ONE (08:51)
[2021-11-08] MEDS ORDERED: LIDOCAINE 1% INJ 10MG/ML (20 ML MDV) ONE (08:51)
--- NOTE | 2021-11-08 09:10 | P.PCN ---
Date of Procedure: 11/08/21 Procedure(s) Performed: BRIEF HISTORY: Patient is a 56-year-old pleasant white female scheduled for an elective colonoscopy as a part of evaluation of change in bowel habits and chronic diarrhea. Patient has history of irritable bowel syndrome. PROCEDURE PERFORMED: Colonoscopy with snare polypectomy. PREOPERATIVE DIAGNOSIS: Change in bowel habits/chronic diarrhea. IV sedation per Anesthesia. PROCEDURE: After informed consent was obtained, the patient, was brought into the endoscopy unit. IV sedation was administered by Anesthesia under continuous monitoring. Digital rectal examination was normal. Initially the Olympus CF-160 flexible video colonoscope was then inserted in the rectum, gradually advanced into the cecum without any difficulty. Careful examination was performed as the scope was gradually being withdrawn. Ileocecal valve and the appendiceal orifice were visualized and appeared normal. Prep was excellent. In the base of the cecum there was a 2 cm linear polyp identified which was removed by piecemeal snare polypectomy and complete polypectomy accomplished. Rest of the cecum, ascending colon, transverse colon, descending colon, sigmoid colon, and rectum appeared normal. Retroflexion was performed in the rectum and no lesions were seen. The patient tolerated the procedure well. IMPRESSION: 2 cm linear polyp in the base of the cecum status post piecemeal snare polypectomy and complete polypectomy accomplished Rest of the colon appeared normal RECOMMENDATIONS: Findings of this examination were discussed with the patient as well as a family. She was advised to follow with the biopsy results. If the biopsy was adenoma she can have a repeat colonoscopy in 3 yrs.
[2021-11-08 09:34] VITALS: BP 105/72; PULSE 50
== END 2021-11-08 09:45 | disposition home or self-care (01) ==
LOC: ORWHC2ENDO 07:35
PROVIDERS: ATTEND Internal Medicine Gastroenterology
DX: D12.0 Benign neoplasm of cecum (principal); K59.00 Constipation, unspecified; R19.7 Diarrhea, unspecified; K58.9 Irritable bowel syndrome, unspecified; Z91.048 Other nonmedicinal substance allergy status; E78.5 Hyperlipidemia, unspecified; E07.9 Disorder of thyroid, unspecified; Z97.2 Presence of dental prosthetic device (complete) (partial); Z79.899 Other long term (current) drug therapy; Z79.890 Hormone replacement therapy
CPT/HCPCS: 88305; 45385; J2001; J2704

== ENCOUNTER → 2022-02-15 | Outpatient (CLI) | payer OTHER ==
--- NOTE | 2022-02-15 15:43 | US ---
EXAMINATION TYPE: US thyroid st tissue head/neck DATE OF EXAM: 02/15/2022 COMPARISON: NONE CLINICAL HISTORY: E04.1 Thyroid nodule. lt thyroidectomy, on meds, f/u exam GLAND SIZE: Right Lobe: 4.9 x 1.4 x 1.4 cm Overall Parenchyma: heterogenous Left Lobe: Surgically absent NODULES RIGHT: # of nodules measured on right: 0 - unable to replicate subcentimeter nodules seen previousl y LEFT: # of nodules measured on left: no residual tissue ISTHMUS: # of nodules measured in the isthmus: 0 Bilateral neck scanned, no evidence of lymphadenopathy. IMPRESSION: Normal right lobe thyroid. Left lobe thyroid is surgically absent. Previous subcentimeter nodules not evident on the current exam. Parathyroid may be posterior to the right lobe thyroid midportion.
== END | disposition home or self-care (01) ==
LOC: RADUSWWP 12:24
PROVIDERS: ATTEND Internal Medicine Geriatric Medicine
DX: E04.1 Nontoxic single thyroid nodule (principal)
CPT/HCPCS: 76536

== ENCOUNTER → 2023-01-18 | Outpatient (CLI) | payer BC, OTHER ==
--- NOTE | 2023-01-18 14:40 | BD ---
EXAMINATION TYPE: Axial Bone Density DATE OF EXAM: 01/18/2023 CLINICAL HISTORY: 58 years old Female. ICD-10 CODE: M81.0 OSTEOPOROSIS Height: 61.5 Weight: 132 FRAX RISK QUESTIONS: Family History (Parent hip fracture): no fx History of Fracture in Adulthood: yes RISK FACTORS HISTORY OF: hx of great toe fx on the right foot as an adult. Family History of Osteoporosis: yes, her mother, no fx Diet low in dairy products/other sources of calcium: yes Postmenopausal woman: yes, at 53 yrs old Hyperparathyroidism: no Adrenal Insufficiency: no MEDICATIONS: Thyroid Medications: yes, synthroid for about 9 yrs Additional Medications: cholesterol meds, vit d Additional History: thyroid, cholesterol EXAM MEASUREMENTS: Bone mineral densitometry was performed using the [employer] System. Bone mineral density as measured about the Lumbar spine is: ----- L1-L4(G/cm2): 1.128 T Score Values are as follows: ----- L1: 0.2 ----- L2: -1.1 ----- L3: -0.6 ----- L4: -0.4 ----- L1-L4: -0.4 Z Score Values are as follows: ----- L1: 1.5 ----- L2: 0.3 ----- L3: 0.8 ----- L4: 0.9 ----- L1-L4: 0.9 Bone mineral density is her first bone density study. Bone mineral density about the R hip (g/cm2): 0.952 Bone mineral density about the L hip (g/cm2): 0.960 T Score values are as follows: -----R Neck: -1.4 -----L Neck: -1.8 -----R Total: -0.4 -----L Total: -0.4 Z Score values are as follows: -----R Neck: -0.1 -----L Neck: -0.5 -----R Total: 0.6 -----L Total: 0.7 Bone mineral density is a baseline study. FRAX%s: The graph provided illustrates a 15.5% chance for a major osteoporotic fx and a 1.9% chance f or the hips probability for fx in 10 years time. IMPRESSION: Osteopenia (T Score between -2.5 and -1). There is slightly increased risk of fracture and the patient may be considered for treatment. Re-Screen 2-5 years. NOTE: T-SCORE=SD OF THE YOUNG ADULT MEAN.
--- NOTE | 2023-01-19 08:40 | MM ---
Reason for Exam: Screening (asymptomatic). Last mammogram was performed 2 year(s) and 8 month(s) ago. Patient History: Menarche at age 10. First Full-Term at age 17. Left ovary removed at age 55. Right ovary removed at age 55. Hysterectomy at age 55. Postmenopausal. 2003, Cyst Aspiration on the Right side. 04/30/2007, Cancelled Right US Needle Biopsy on the right side. Risk Values: Suzette 5 year model risk: 1.0%. NCI Lifetime model risk: 5.3%. Prior Study Comparison: 12/27/2012 Bilateral Diagnostic Mammogram, [facility]. 05/25/2020 Bilateral Screening Mammogram, [facility]. 06/10/2020 Left Diagnostic Mammogram, [facility]. Tissue Density: The breast tissue is heterogeneously dense. This may lower the sensitivity of mammography. Findings: Analyzed By CAD. There is no suspicious group of microcalcifications or new suspicious mass in either breast. Overall Assessment: Benign, BI-RAD 2 Management: Screening Mammogram of both breasts in 1 year. . Patient should continue monthly self-breast exams. A clinical breast exam by your physician is recommended on an annual basis. This exam should not preclude additional follow-up of suspicious palpable abnormalities. Note on Szuette scores and lifetime risk: 1. A Suzette score greater than 3% is considered moderate risk. If this is the case, consider specialist referral to assess eligibility for a risk reducing agent. 2. If overall lifetime risk for the development of breast cancer is 20% or higher, the patient may qualify for future screening with alternating mammogram and breast MRI. Electronically signed and approved by: Sohan Castelan M.D. Radiologis
== END | disposition home or self-care (01) ==
LOC: RADBDWWP 10:43
PROVIDERS: ATTEND Internal Medicine Geriatric Medicine
DX: Z12.31 Encounter for screening mammogram for malignant neoplasm of breast (principal); M85.89 Other specified disorders of bone density and structure, multiple sites; M81.0 Age-related osteoporosis without current pathological fracture
CPT/HCPCS: 77063; 77067; 77080

== ENCOUNTER 2023-06-13 10:09 | Emergency (ER) | payer BC, OTHER ==
[2023-06-13 10:23] VITALS: RESP 18; TEMP 98.3
--- NOTE | 2023-06-13 10:52 | ED ---
Extremity Problem HPI - General Chief complaint: Extremity Problem,Nontraumatic Stated complaint: leg swelling Time Seen by Provider: 06/13/23 10:26 Source: patient Mode of arrival: ambulatory Limitations: no limitations - History of Present Illness Initial comments: This is a 58-year-old female who presents to the emergency department for left hip and thigh pain. States that over the last 6 months, she has developed swelling in the left hip and groin area. States that this typically occurs after being on her feet for a long period of time and at night. States that she has also noticed the swelling to the hip area. Denies any injuries. States that this may be related to being on her feet for long period of time, but she is not entirely sure. She is not taking any blood thinners. She does have varicose veins but denies any history of blood clots. For the most part she does not take anything to treat her pain. MD Complaint: extremity pain, extremity swelling - Related Data Home Medications Medication Instructions Recorded Confirmed Levothyroxine Sodium [Synthroid] 25 mcg PO QAM 08/11/15 11/08/21 Ascorbic Acid [Vitamin C] 1,000 mg PO DAILY 11/04/21 11/08/21 Cholecalciferol [Vitamin D3 (25 25 mcg PO DAILY 11/04/21 11/08/21 Mcg = 1000 Iu)] Rosuvastatin Calcium [Crestor] 10 mg PO HS 11/04/21 11/08/21 Allergies Allergy/AdvReac Type Severity Reaction Status Date / Time ciprofloxacin [From Cipro] Allergy Rash/Hives Verified 06/13/23 10:20 Milk Containing Products Allergy Unknown Verified 06/13/23 10:20 (Dairy) [Milk Containing Products] shellfish derived [Shellfish] Allergy Unknown Verified 06/13/23 10:20 Iodinated Contrast Media AdvReac Intermediate Anaphylaxis Verified 06/13/23 10:20 Review of Systems ROS Statement: Those systems with pertinent positive or pertinent negative responses have been documented in the HPI. ROS Other: All systems not noted in ROS Statement are negative. Past Medical History Past Medical History: Thyroid Disorder Additional Past Medical History / Comment(s): positive H pylori, intermittent abdominal pain with certain foods,hx Covid infection Jul 2021-Monoclonal antibodies recieved History of Any Multi-Drug Resistant Organisms: None Reported Past Surgical History: Bladder Surgery, Hysterectomy, Orthopedic Surgery Additional Past Surgical History / Comment(s): Partial thyroidectomy on the left side. Bilateral hand surg,EGD Past Anesthesia/Blood Transfusion Reactions: No Reported Reaction Additional Past Anesthesia/Blood Transfusion Reaction / Comment(s): no hx blood transfusions Past Psychological History: No Psychological Hx Reported Smoking Status: Never smoker Past Alcohol Use History: Occasional - Past Family History Mother Family Medical History: No Reported History Father Family Medical History: Cancer Additional Family Medical History / Comment(s): stomach CA General Exam Limitations: no limitations General appearance: alert, in no apparent distress Head exam: Present: atraumatic, normocephalic, normal inspection Respiratory exam: Present: normal lung sounds bilaterally. Absent: respiratory distress, wheezes, rales, rhonchi, stridor Cardiovascular Exam: Present: regular rate, normal rhythm, normal heart sounds. Absent: systolic murmur, diastolic murmur, rubs, gallop, clicks Extremities exam: Present: other (Tenderness to palpation over the left groin and left greater trochanter. There are no obvious deformities, obvious swelling, erythema, or increased heat.) Neurological exam: Present: alert, oriented X3, CN II-XII intact Psychiatric exam: Present: normal affect, normal mood Skin exam: Present: warm, dry, intact, normal color. Absent: rash Course Vital Signs 06/13/23 10:18 Temperature 98.3 F Pulse Rate 68 Respiratory 18 Rate Blood Pressure 133/83 O2 Sat by Pulse 98 Oximetry Medical Decision Making - Medical Decision Making This is a 58-year-old female who presents to the emergency department for left leg pain and swelling. Was pt. sent in by a medical professional or institution? @ -No Did you speak to anyone other than the patient for history? @ -No Did you review nursing and triage notes? @ -Yes, and I agree, it is accurate with regards to the patient's symptoms. Were old charts reviewed? @ -No Differential Diagnosis? @ -Differential Leg Pain: Leg fracture, leg sprain, DVT, PVD, arterial insufficiency, iliac artery aneurysm, cellulitis, compartment syndrome, tendinopathy, nerve entrapment, piriformis syndrome, osteoarthritis, rhabdomyolysis, myositis, cramping from an electrolyte imbalance, this is not meant to be an all inclusive list. EKG interpreted by me (3pts min.)? @ -Not obtained X-rays interpreted by me (1pt min.)? @ -X-ray of the left hip obtained. My interpretation identifies no acute fractures. CT interpreted by me (1pt min.)? @ -Not obtained U/S interpreted by me (1pt. min.)? @ -Duplex ultrasound of the left lower extremity obtained. My interpretation identifies no evidence of a DVT. What testing was considered but not performed? (CT, X-rays, U/S, labs)? Why? @ -None What meds were considered but not given? Why? @ -None Did you discuss the management of the patient with other professionals? @ -No Did you reconcile home meds? @ -No Was smoking cessation discussed for >3mins.? @ -No Was critical care preformed (if so, how long)? @ -No Were there social determinants of health that impacted care today? How? (Homelessness, low income, unemployed, alcoholism, drug addiction, tra nsportation, low edu. Level, literacy, decrease access to med. care, shelter, rehab)? @ -No Was there de-escalation of care discussed even if they declined? (Discuss DNR or withdrawal of care, Hospice)? @ -No What co-morbidities impacted this encounter? (DM, HTN, Smoking, COPD, CAD, Cancer, CVA, Hep., AIDS, mental health diagnosis, sleep apnea, morbid obesity)? @ -None Was patient admitted / discharged? @ -Discharged. Duplex ultrasound of the left lower extremity obtained revealing no acute process. X-ray of the left hip obtained as well, also revealing no acute findings. Physical examination did not identify any irregularities. Discussed with the patient that the cause of this is not entirely clear. It may be related to overuse and being on her feet for long periods of time, as the patient mentioned. She has been to [facility] for other injuries in the past. Advised she follow-up with them for further evaluation of ongoing symptoms. We also discussed ibuprofen and Tylenol as needed for pain relief. Undiagnosed new problem with uncertain prognosis? @ -None Drug Therapy requiring intensive monitoring for toxicity (Heparin, Nitro, Insulin, Cardizem)? @ -None Were any procedures done? @ -None Diagnosis/symptom? @ -Left hip pain Acute, or Chronic, or Acute on Chronic? @ -Chronic Uncomplicated (without systemic symptoms) or Complicated (systemic symptoms)? @ -Uncomplicated Side effects of treatment? @ -None Exacerbation, Progression, or Severe Exacerbation] @ -Exacerbation Poses a threat to life or bodily function? @ -This is having a minor impact on her ability to ambulate Return precautions reviewed in depth, the patient is instructed to return to the emergency department with any new, worsening, or concerning symptoms. Patient verbalized understanding. This case was discussed in detail with the attending ED physician, Dr. Gomez. Presentation, findings, and treatment plan discussed in detail as well. - Radiology Data Radiology results: report reviewed, image reviewed Disposition Clinical Impression: Left hip pain Disposition: HOME SELF-CARE Instructions (If sedation given, give patient instructions): Hip Pain (ED) Additional Instructions: Return to the emergency department with any new, worsening, or concerning symptoms. Contact orthopedics as listed below for a follow-up appointment and reevaluation of ongoing symptoms. Follow up with your primary care provider in 1-2 days. Is patient prescribed a controlled substance at d/c from ED?: No Referrals: Angie Mckeon MD [Primary Care Provider] - 1-2 days Hernandez Snell DO [Doctor of Osteopathic Medicine] - 1-2 days
--- NOTE | 2023-06-13 11:24 | US ---
EXAMINATION TYPE: US venous doppler duplex LE LT DATE OF EXAM: 06/13/2023 11:09 AM COMPARISON: NONE CLINICAL INDICATION: Female, 58 years old with history of Left leg pain and swelling; Left lateral hi p pain. Patient states it swells at night. No redness. Patient states she is constantly on her fee t and just did a marathon. SIDE PERFORMED: Left TECHNIQUE: The lower extremity deep venous system is examined utilizing real time linear array sonog jonathan with graded compression, doppler sonography and color-flow sonography. VESSELS IMAGED: Common Femoral Vein Deep Femoral Vein Greater Saphenous Vein * Femoral Vein Popliteal Vein Small Saphenous Vein * Proximal Calf Veins (* superficial vessels) Left Leg: Negative for DVT IMPRESSION: Grayscale, color doppler, spectral doppler imaging performed of the deep veins of the lo wer extremities. There is normal flow, compressibility, vascular waveforms.
--- NOTE | 2023-06-13 11:54 | XR ---
EXAMINATION TYPE: XR Hip Complete LT DATE OF EXAM: 06/13/2023 CLINICAL HISTORY: pain TECHNIQUE: AP and frogleg views of the left hip are obtained. COMPARISON: None. FINDINGS: There is no acute fracture/dislocation evident. The joint space appears within normal li mits. The overlying soft tissue appears unremarkable. IMPRESSION: 1. There is no acute fracture or dislocation.ICD 10 NO FRACTURE, INITIAL EVALUATION
[2023-06-13] MEDS ORDERED: ACET/COD 300 MG/30 MG STARTER PACK 6 TAB BTL PO STA (12:03)
[2023-06-13 12:48] VITALS: BP 135/84; PULSE 80
== END 2023-06-13 12:33 | disposition home or self-care (01) ==
LOC: SUPCPDRO 10:09 → EC 10:09
DX: M25.552 Pain in left hip (principal); E07.9 Disorder of thyroid, unspecified; Z79.890 Hormone replacement therapy; Z86.16 Personal history of COVID-19; Z91.011 Allergy to milk products; Z91.013 Allergy to seafood; Z88.8 Allergy status to other drugs, medicaments and biological substances; Z88.1 Allergy status to other antibiotic agents
CPT/HCPCS: 73502; 99284